=== PATIENT | female | born 1990 ===

== ENCOUNTER 2016-08-19 17:32 | Emergency (ER) | payer MEDICAID, OTHER ==
[2016-08-19 17:56] VITALS: TEMP 98.5
--- NOTE | 2016-08-19 18:22 | C.PDOC ---
History Of Present Illness 26 y/o F c history of gastritis p/w increased urinary frequency and urgency with suprapubic pain which is relieved after urination. Also reports a feeling of pain in the abdomen that resolves with bowel movements and notes that she has felt constipated. She denies fever, chills, dyspnea, vomiting. Time Seen by Provider: 08/19/16 17:59 Chief Complaint (Nursing): Female Genitourinary Past Medical History Vital Signs: Last Vital Signs Temp 98.5 F 08/19/16 17:54 Pulse 78 08/19/16 19:13 Resp 16 08/19/16 19:13 BP 123/78 08/19/16 19:13 Pulse Ox 98 08/19/16 19:13 - Medical History PMH: Gastritis Family History: States: No Known Family Hx - Social History Hx Alcohol Use: No Hx Substance Use: No Review Of Systems Except As Marked, All Systems Reviewed And Found Negative. Constitutional: Negative for: Fever Respiratory: Negative for: Shortness of Breath Physical Exam - Physical Exam Additional Physical Exam Comments: Constitutional: No acute distress. Head: Normocephalic. Atraumatic. Neck: Supple. Cardiovascular:Regular rate. Radial pulses 2+ bilaterally. Chest: No tenderness. Respiratory: Clear to auscultation bilaterally. GI: Soft. Suprapubic tenderness. Nondistended. Back: No CVA tenderness. Musculoskeletal: No tenderness or swelling of extremities. Skin: No rashes. Neurologic: Alert, no focal deficit. ED Course And Treatment O2 Sat by Pulse Oximetry: 100 Disposition - Disposition Disposition: HOME/ ROUTINE Disposition Time: 19:00 Condition: STABLE Prescriptions: Nitrofurantoin Macrocrystals [Macrobid] 100 mg PO BID #20 cap Phenazopyridine [Pyridium] 1 tab PO Q8 #6 tab Instructions: Dysuria (ED) - Clinical Impression Clinical Impression: Dysuria
[2016-08-19 18:52] LABS: RBC URINE 72 /hpf (0-3); URINE BACTERIA OCC (<OCC); URINE BILIRUBIN NEGATIVE (NEGATIVE); URINE BLOOD 3+ (NEGATIVE); URINE GLUCOSE (UA) NORMAL (Normal); URINE KETONE NEGATIVE (NEGATIVE); URINE LEUKOCYTE ESTERASE NEG Leu/uL (Negative); URINE PROTEIN NEGATIVE (NEGATIVE); WBC URINE 2 /hpf (0-5)
[2016-08-19 18:53] LABS: URINE COLOR YELLOW (YELLOW)
[2016-08-19 19:13] VITALS: BP 123/78; PULSE 78; RESP 16
[2016-08-20 13:32] VITALS: O2SAT 100
== END 2016-08-19 19:14 | disposition home or self-care (01) ==
LOC: C.ER 17:32
DX: R30.0 Dysuria (principal)